=== PATIENT | male | born 1970 | race Caucasian/White ===

== ENCOUNTER 2024-10-18 15:11 | Emergency (ER) | payer BC ==
[~2024-10-18] VITALS: Ht 167.6 cm; Wt 99.8 kg
[2024-10-18] MEDS ORDERED: KETOROLAC TROMETHAMINE 30 MG INJ ONE (17:51)
[2024-10-18] MEDS: KETOROLAC TROMETHAMINE 30 MG INJ IM ONE (17:57)
[2024-10-18] MEDS ORDERED: IBUP-1957 PO (18:24)
[2024-10-18 18:44] VITALS: BP 132/81; O2SAT 98
== END 2024-10-18 18:45 ==
LOC: ER 16:34
DX: S16.1XXA Strain of muscle, fascia and tendon at neck level, initial encounter (principal); S43.101A Unspecified dislocation of right acromioclavicular joint, initial encounter; R06.02 Shortness of breath; F15.10 Other stimulant abuse, uncomplicated; Z88.0 Allergy status to penicillin; Z88.5 Allergy status to narcotic agent; X50.0XXA Overexertion from strenuous movement or load, initial encounter; Y93.9 Activity, unspecified; Y92.9 Unspecified place or not applicable; Y99.9 Unspecified external cause status
CPT/HCPCS: 99285; 72125; 71045; 73020; 96372; J1885; A4606; A4663